=== PATIENT | female | born 1950 | race Two or more races ===

== ENCOUNTER 2018-03-09 18:57 | Inpatient (IN) | payer MEDICARE ==
[~2018-03-09] VITALS: Ht 160 cm; Wt 54.0 kg
--- NOTE | 2018-03-09 19:25 | NUR ---
REPORT RECEIVED FROM KATERIN BETTS
[2018-03-09 20:26] LABS: ACETAMINOPHEN < 2.0 ug/mL (10-30)
[2018-03-09 20:35] LABS: ETHANOL < 3 MG/DL (0-0)
--- NOTE | 2018-03-09 20:55 | NUR ---
REPORT GIVEN TO MHU NURSE, ROXANE CRUZ
--- NOTE | 2018-03-09 21:24 | NUR ---
PT IN BED. PT IS CALM AND COOPERATIVE. PT HAS ONE TO ONE SITTER. NO SIGNS OF ACUTE DISTRESS AT THIS TIME.
--- NOTE | 2018-03-09 21:30 | NUR ---
Pt. admitted to [facility]HU, under care of Dr. CARROLL/AISHA Belongs List completed
[2018-03-09] MEDS ORDERED: AMLO5TAB2 PO (22:10)
[2018-03-09] MEDS ORDERED: GABA-532 PO (22:10)
[2018-03-09] MEDS ORDERED: BUPR-96 PO (22:10)
[2018-03-09] MEDS ORDERED: GLIP5TAB13 PO (22:10)
[2018-03-09] MEDS ORDERED: LIDOCAINE 4% TD (22:10)
[2018-03-09 22:13] LABS: *BILIRUBIN,URIN NEGATIVE (NEGATIVE); *BLOOD, URINE Trace-lysed (NEGATIVE); *CLARITY,URINE SLIGHTLY CLOUDY (CLEAR); *COLOR,URINE YELLOW (YELLOW); *KETONES,URINE NEGATIVE (NEGATIVE); *PROTEIN,URINE 2+ (NEGATIVE); *UROBILINOGEN,URINE 0.2 E.U./dl (NORMAL); LEUKOCYTE ESTERASE ,URINE 3+ (NEGATIVE); NITRITE, URINE NEGATIVE (NEGATIVE); UGLUCOSE TRACE (NEGATIVE)
[2018-03-09 22:15] VITALS: BP 120/68
[2018-03-09 22:33] LABS: *AMPHETAMINE, URINE NEGATIVE (NEGATIVE); *BARBITURATE, URINE NEGATIVE (NEGATIVE); *CANNABINOID, URINE NEGATIVE (NEGATIVE); *COCCAINE, URINE NEGATIVE (NEGATIVE); *OPIATE, URINE POSITIVE (NEGATIVE); *PHENCYCLIDINE SCREEN,URINE NEGATIVE (NEGATIVE)
[2018-03-09 22:40] LABS: BACTERIA,URINE FEW /HPF (NONE SEEN); SQUAMOUS EPITHELIAL CELL,UR FEW /HPF (NONE SEEN); WBC,URINE 50-80 /HPF (0-3)
[2018-03-09] MEDS ORDERED: MAGNESIUM HYDROXIDE 30 ML LIQUID UDC PO PRN (22:45)
[2018-03-09] MEDS: ACETAMINOPHEN 325 MG TABLET PO PRN (22:49)
[2018-03-09] MEDS: ZOLPIDEM 5 MG TABLET PO PRN (22:49)
--- NOTE | 2018-03-09 23:53 | NUR ---
GPS: Admitted to unit earlier a 67 yr.old female under the care of / in stable condition. Pt.is on a 72 hour hold for DTS. Pt.has been depressed,feels hopeless since loss of job about 2 yrs.ago. Pt. has multiple thoughts of cutting wrists with a knife. Pt. contracts for safety at this time. Re-assured prn. Sitter at bedside for safety. VSS.
[2018-03-10 07:30] VITALS: BP 160/82
--- NOTE | 2018-03-10 08:46 | NUR ---
CALL FOR CONSULT PER DR. LEONARD'S REQUESTED.
[2018-03-10] MEDS ORDERED: glipiZIDE 5 MG TABLET PO SCH (09:00)
[2018-03-10] MEDS ORDERED: GABAPENTIN 100 MG CAPSULE PO SCH ×2 (09:00)
[2018-03-10] MEDS: AMLODIPINE 5 MG TABLET PO SCH (09:39)
[2018-03-10] MEDS: buPROPion XL 150 MG TAB.SR.24H PO SCH (09:39)
[2018-03-10] MEDS: HALOPERIDOL 0.5 MG TABLET PO SCH ×2 (09:39→16:34)
[2018-03-10] MEDS: GABAPENTIN 100 MG CAPSULE PO SCH ×3 (09:40→16:34)
--- NOTE | 2018-03-10 10:29 | NUR ---
Firearms Report: Utilization Management Rn completed and submitted [employer] Report on 03/10/18 for 5150 DTS certification.
[2018-03-10] MEDS ORDERED: DEXTROSE 50% 50 ML DISP.SYRIN IV PRN (11:00)
[2018-03-10] MEDS: BLOOD SUGAR DIAGNOSTIC 1 EACH STRIP VI SCH ×3 (12:21→20:35)
[2018-03-10] MEDS: CEPHALEXIN MONOHYDRATE 500 MG CAPSULE PO SCH ×2 (13:00→21:40)
[2018-03-10 15:09] VITALS: BP 128/58
--- NOTE | 2018-03-10 15:41 | NUR ---
Initial Discharge Instructions: Patient is currently living at home with her and 2 adult sons [[address], [place] [address]; [phone]]. Patient reports she would like to return home upon discharge. SW will speak with patient's sister, Poornima ([phone]) and son, Pankaj ([phone]). SHANNAN will continue to collaborate with pt, family, and MD regarding appropriate discharge plans for this patient. SW will form a safe and proper discharge plan.
[2018-03-10] MEDS: glipiZIDE 5 MG TABLET PO SCH (16:34)
[2018-03-10 20:00] VITALS: BP 143/82
[2018-03-10] MEDS: LORAZEPAM 0.5 MG TABLET PO PRN (20:01)
[2018-03-10] MEDS: ATORVASTATIN 40 MG TABLET PO SCH (20:01)
--- NOTE | 2018-03-10 20:05 | NUR ---
GPS: Pt.is confused,anxious and crying at this time. Pt. is strongly insisting that she is not in her room. Staff re-assured pt.through kyrgyz speaking staff that she is in the right room at this time.Pt.continues to insist that she is not in her room. Re-directed at this time. Ativan 0.5 mg given PO for anxiety. Will monitor behavior for further escalation.
--- NOTE | 2018-03-10 20:35 | NUR ---
GPS: Blood sugar checked at this time and was 146mg/dl. Refused 2 units of reg.insulin per sliding scale despite explanation of importance. Pt.still anxious,angry and continues to insist that she is not in her room at this time. Re-directed and re-assured frequently by staff. Fall precautions observed.
[2018-03-10] MEDS: INSULIN REGULAR, HUMAN 300 UNITS/3 ML VIAL SQ PRN (20:39)
--- NOTE | 2018-03-10 21:40 | NUR ---
GPS: Refused Keflex 500mg PO at this time for her UTI despite explanation of importance. Pt.still confused,insisting that she is not in her room at this time. Re-directed frequently.
[2018-03-11] MEDS: CEPHALEXIN MONOHYDRATE 500 MG CAPSULE PO SCH ×3 (06:19→21:23)
[2018-03-11] MEDS: BLOOD SUGAR DIAGNOSTIC 1 EACH STRIP VI SCH ×7 (06:32→20:26)
[2018-03-11 07:30] VITALS: BP 134/77
[2018-03-11] MEDS: buPROPion XL 150 MG TAB.SR.24H PO SCH (08:23)
[2018-03-11] MEDS: AMLODIPINE 5 MG TABLET PO SCH (08:24)
[2018-03-11] MEDS: HALOPERIDOL 0.5 MG TABLET PO SCH ×2 (08:24→16:55)
[2018-03-11] MEDS: GABAPENTIN 100 MG CAPSULE PO SCH ×3 (08:24→16:55)
[2018-03-11] MEDS: glipiZIDE 5 MG TABLET PO SCH ×2 (08:24→16:30)
[2018-03-11 09:05] LABS: BASOPHILS # (AUTO) 0.3 K/uL (0.0-8.0); BASOPHILS % (AUTO) 2.3 % (0.0-2.0); EOSINOPHILS # (AUTO) 0.4 K/uL (0.0-0.7); EOSINOPHILS % (AUTO) 3.2 % (0.0-7.0); HEMATOCRIT 33.3 % (31.2-41.9); HEMOGLOBIN 11.1 g/dL (10.9-14.3); LYMPHOCYTES # (AUTO) 2.8 K/uL (20.0-40.0); LYMPHOCYTES % (AUTO) 24.9 % (20.5-51.5); MEAN CORPUSCULAR HEMOGLOBIN 27.2 uug (24.7-32.8); MEAN CORPUSCULAR HGB CONC 33 g/dL (32.3-35.6); MEAN CORPUSCULAR VOLUME 81.9 fL (75.5-95.3); MONOCYTES # (AUTO) 0.9 K/uL (2.0-10.0); MONOCYTES % (AUTO) 7.9 % (0.0-11.0); NEUTROPHILS % (AUTO) 61.7 % (38.5-71.5); PLATELET COUNT (AUTO) 542 K/uL (179-408); RED BLOOD CELL COUNT(AUTO) 4.07 MIL/uL (3.63-4.92); WHITE BLOOD COUNT (AUTO) 11.3 K/uL (3.8-11.8)
[2018-03-11 09:22] LABS: BILIRUBIN,TOTAL 0.4 mg/dL (0.2-1.0); CREATININE 3.4 mg/dL (0.6-1.3); MAGNESIUM 2.3 mg/dL (1.8-2.4); PHOSPHOROUS 5.3 mg/dL (2.5-4.9); POTASSIUM 4.1 mmol/L (3.5-5.1); TOTAL PROTEIN, SERUM 9.4 g/dL (6.4-8.2)
[2018-03-11 09:26] LABS: THYROID STIMULATING HORMONE 1.054 mIU/mL (0.358-3.740)
[2018-03-11] MEDS: INSULIN REGULAR, HUMAN 300 UNIT/3 ML VIAL SQ PRN (11:40)
[2018-03-11] MEDS: ACETAMINOPHEN 325 MG TABLET PO PRN (14:02)
[2018-03-11 15:28] LABS: *BILIRUBIN,URIN NEGATIVE (NEGATIVE); *BLOOD, URINE Trace-lysed (NEGATIVE); *COLOR,URINE LIGHT YELLOW (YELLOW); *KETONES,URINE NEGATIVE (NEGATIVE); *PROTEIN,URINE 2+ (NEGATIVE); *UROBILINOGEN,URINE 0.2 E.U./dl (NORMAL); LEUKOCYTE ESTERASE ,URINE 3+ (NEGATIVE); NITRITE, URINE NEGATIVE (NEGATIVE); PH,URINE 6.5 (5.0-8.0); UGLUCOSE TRACE (NEGATIVE)
[2018-03-11 15:35] LABS: *CREATININE,URINE 33.5 mg/dL (30-125); *URINE TOTAL PROTEIN RANDOM 69.3 mg/dL (<150/24HR)
[2018-03-11 15:51] LABS: *CLARITY,URINE HAZY (CLEAR)
[2018-03-11 15:57] LABS: BACTERIA,URINE FEW /HPF (NONE SEEN); SQUAMOUS EPITHELIAL CELL,UR FEW /HPF (NONE SEEN); WBC,URINE 50-80 /HPF (0-3)
[2018-03-11 16:00] VITALS: BP 150/77
--- NOTE | 2018-03-11 16:29 | NUR ---
BLOOD SUGAR BY ACCU-CHEK 54 BUT ASYMPTOMATIC, WARM AND DRY SKIN, AWAKE ALERT AND ABLE TO FOLLOW INSTRUCTION. WILL RE-CHECK PER PROTOCOL
--- NOTE | 2018-03-11 16:45 | NUR ---
blood sugar recheck 72, glucotrol held. patient remains asymptomatic
[2018-03-11] MEDS: ATORVASTATIN 40 MG TABLET PO SCH (20:07)
[2018-03-11 20:19] VITALS: BP 153/78
[2018-03-11] MEDS: INSULIN REGULAR, HUMAN 300 UNITS/3 ML VIAL SQ PRN (20:42)
--- NOTE | 2018-03-12 05:30 | NUR ---
GPS: Pt. refusing to have a straight cath.done on her (to collect urine) despite explanation of doctors orders. Pt. is continent and is assisted to the bathroom prn. Charge nurse aware.
[2018-03-12] MEDS: BLOOD SUGAR DIAGNOSTIC 1 EACH STRIP VI SCH ×4 (06:37→20:10)
[2018-03-12] MEDS: CEPHALEXIN MONOHYDRATE 500 MG CAPSULE PO SCH ×3 (06:37→22:19)
[2018-03-12 07:30] VITALS: BP 121/78
[2018-03-12 08:41] LABS: BASOPHILS # (AUTO) 0.2 K/uL (0.0-8.0); BASOPHILS % (AUTO) 1.4 % (0.0-2.0); EOSINOPHILS # (AUTO) 0.4 K/uL (0.0-0.7); EOSINOPHILS % (AUTO) 3.3 % (0.0-7.0); HEMATOCRIT 34.1 % (31.2-41.9); HEMOGLOBIN 11.3 g/dL (10.9-14.3); LYMPHOCYTES # (AUTO) 2.9 K/uL (20.0-40.0); LYMPHOCYTES % (AUTO) 24.4 % (20.5-51.5); MEAN CORPUSCULAR HEMOGLOBIN 27.4 uug (24.7-32.8); MEAN CORPUSCULAR HGB CONC 33 g/dL (32.3-35.6); MEAN CORPUSCULAR VOLUME 82.8 fL (75.5-95.3); MONOCYTES % (AUTO) 8.6 % (0.0-11.0); NEUTROPHILS # (AUTO) 7.5 K/uL (1.8-8.9); NEUTROPHILS % (AUTO) 62.3 % (38.5-71.5); PLATELET COUNT (AUTO) 552 K/uL (179-408); RED BLOOD CELL COUNT(AUTO) 4.12 MIL/uL (3.63-4.92)
[2018-03-12] MEDS: glipiZIDE 5 MG TABLET PO SCH ×2 (08:43→17:35)
[2018-03-12] MEDS: buPROPion XL 150 MG TAB.SR.24H PO SCH (08:44)
[2018-03-12] MEDS: GABAPENTIN 100 MG CAPSULE PO SCH ×3 (08:44→17:35)
[2018-03-12] MEDS: HALOPERIDOL 0.5 MG TABLET PO SCH ×3 (08:44→17:35)
[2018-03-12] MEDS: AMLODIPINE 5 MG TABLET PO SCH (08:44)
[2018-03-12 08:58] LABS: BILIRUBIN,TOTAL 0.4 mg/dL (0.2-1.0); CREATININE 3.7 mg/dL (0.6-1.3); MAGNESIUM 2.6 mg/dL (1.8-2.4); PHOSPHOROUS 4.7 mg/dL (2.5-4.9); POTASSIUM 4.4 mmol/L (3.5-5.1); TOTAL PROTEIN, SERUM 9.9 g/dL (6.4-8.2)
[2018-03-12] MEDS: INSULIN REGULAR, HUMAN 300 UNIT/3 ML VIAL SQ PRN ×2 (09:00→12:35)
[2018-03-12 16:00] VITALS: BP 135/69
[2018-03-12] MEDS: ACETAMINOPHEN 325 MG TABLET PO PRN (16:59)
[2018-03-12] MEDS: INSULIN REGULAR, HUMAN 300 UNITS/3 ML VIAL SQ PRN (20:27)
[2018-03-12] MEDS: ATORVASTATIN 40 MG TABLET PO SCH (20:30)
[2018-03-12 21:07] VITALS: BP 154/85
[2018-03-13 03:06] LABS: VIT D, 25-HYDROXY 18.7 ng/mL (30.0-100.0)
[2018-03-13] MEDS: CEPHALEXIN MONOHYDRATE 500 MG CAPSULE PO SCH (05:58)
--- NOTE | 2018-03-13 06:21 | NUR ---
GPS: REMAIN CALM AND COOPERATIVE WITH MEDICATIONS. PLESANT UPON APPROACH. SLEPT 7:30 HRS THROUGH THE NIGHT. CONTINUE PLAN OF CARE.
[2018-03-13] MEDS: BLOOD SUGAR DIAGNOSTIC 1 EACH STRIP VI SCH ×4 (06:34→21:27)
[2018-03-13 07:30] VITALS: BP 131/77
[2018-03-13] MEDS: glipiZIDE 5 MG TABLET PO SCH ×2 (08:02→17:22)
[2018-03-13] MEDS: INSULIN REGULAR, HUMAN 300 UNIT/3 ML VIAL SQ PRN ×2 (08:05→12:28)
[2018-03-13 08:07] LABS: A/G RATIO 0.6 (0.7-1.7); ALBUMIN 3.3 g/dL (2.9-4.4); ALPHA-1-GLOBULIN 0.3 g/dL (0.0-0.4); ALPHA-2-GLOBULIN 1.5 g/dL (0.4-1.0); BETA GLOBULIN 1.4 g/dL (0.7-1.3); GAMMA GLOBULIN 2.8 g/dL (0.4-1.8); M-SPIKE Not Observed g/dL (Not Observed)
[2018-03-13] MEDS: GABAPENTIN 100 MG CAPSULE PO SCH ×3 (08:52→17:22)
[2018-03-13] MEDS: HALOPERIDOL 0.5 MG TABLET PO SCH ×4 (08:52→21:26)
[2018-03-13] MEDS: buPROPion XL 150 MG TAB.SR.24H PO SCH (08:53)
[2018-03-13] MEDS: AMLODIPINE 5 MG TABLET PO SCH (08:53)
[2018-03-13] MEDS: CHOLECALCIFEROL 1,000 UNIT TABLET PO SCH (12:25)
--- NOTE | 2018-03-13 13:48 | NUR ---
Spoke to RN, RN concerns of pt p/o intake not meeting 100%. Pt on CCHO-75gm diet, p/o intake 72% x10 meals. Pt is mild moderate fat & muscle loss, BMI 21.1-underweight for age. Will add Glucerna QD at breakfast. RD to follow. Addendum: 03/13/18 at [address] Amended: Links added.
[2018-03-13] MEDS: ACETAMINOPHEN 325 MG TABLET PO PRN (14:01)
[2018-03-13 15:42] VITALS: BP 131/79
[2018-03-13] MEDS: ATORVASTATIN 40 MG TABLET PO SCH (21:26)
[2018-03-13] MEDS: INSULIN REGULAR, HUMAN 300 UNITS/3 ML VIAL SQ PRN (21:27)
[2018-03-13 21:36] VITALS: BP 131/77
--- NOTE | 2018-03-14 01:00 | NUR ---
RECEIVED PATIENT AWAKE WITH EYES SHUT AND INITIALLY NOT MAKING EYE CONTACT.OPENED THEM LATER AND ANSWERED SOME QUESTIONS SELECTIVELY.ADMITTED TO BEING SAD BUT COULD NOT SAY WHY.ON I.V HYDRATION ON N/S 80CC/HR.SAME INFUSING, LINE PATENT WITH NO ADVERSE REACTION.SHE LATER REQUESTED A SLEEPING PILL AND AFTER ASSESSMENT SAME GIVEN AT 2300 WITH GOOD EFFECT.WILL CONTINUE TO MONITOR CLOSELY ALSO HAS 1;1 SITTER FOR SAFETY. NO COMPLIANT OF PAIN OR DISCOMFORT AT THIS TIME
[2018-03-14] MEDS: BLOOD SUGAR DIAGNOSTIC 1 EACH STRIP VI SCH ×4 (06:48→23:35)
--- NOTE | 2018-03-14 07:03 | NUR ---
PT HAD 7.0 HRS DURING SHIFT. BG DONE, 118 IN AM. SAFETY MEASURES RENDERED.
[2018-03-14 07:30] VITALS: BP_SYST 119; BP_SYST 141; BP_DIAS 78
[2018-03-14 07:37] LABS: BASOPHILS # (AUTO) 0.2 K/uL (0.0-8.0); BASOPHILS % (AUTO) 1.7 % (0.0-2.0); EOSINOPHILS # (AUTO) 0.6 K/uL (0.0-0.7); EOSINOPHILS % (AUTO) 5.7 % (0.0-7.0); HEMATOCRIT 32.2 % (31.2-41.9); HEMOGLOBIN 10.5 g/dL (10.9-14.3); LYMPHOCYTES # (AUTO) 3.9 K/uL (20.0-40.0); LYMPHOCYTES % (AUTO) 37.9 % (20.5-51.5); MEAN CORPUSCULAR HEMOGLOBIN 26.8 uug (24.7-32.8); MEAN CORPUSCULAR HGB CONC 33 g/dL (32.3-35.6); MEAN CORPUSCULAR VOLUME 82.3 fL (75.5-95.3); MONOCYTES # (AUTO) 0.8 K/uL (2.0-10.0); MONOCYTES % (AUTO) 8.3 % (0.0-11.0); NEUTROPHILS # (AUTO) 4.7 K/uL (1.8-8.9); NEUTROPHILS % (AUTO) 46.4 % (38.5-71.5); PLATELET COUNT (AUTO) 499 K/uL (179-408); RED BLOOD CELL COUNT(AUTO) 3.91 MIL/uL (3.63-4.92); WHITE BLOOD COUNT (AUTO) 10.2 K/uL (3.8-11.8)
[2018-03-14 08:02] LABS: CREATININE 3.7 mg/dL (0.6-1.3); MAGNESIUM 2.2 mg/dL (1.8-2.4); PHOSPHOROUS 4.7 mg/dL (2.5-4.9); POTASSIUM 3.9 mmol/L (3.5-5.1)
[2018-03-14] MEDS: glipiZIDE 5 MG TABLET PO SCH ×2 (08:30→18:03)
[2018-03-14] MEDS: HALOPERIDOL 0.5 MG TABLET PO SCH ×4 (09:42→20:50)
[2018-03-14] MEDS: GABAPENTIN 100 MG CAPSULE PO SCH ×3 (09:43→18:04)
[2018-03-14] MEDS: CHOLECALCIFEROL 1,000 UNIT TABLET PO SCH (09:43)
[2018-03-14] MEDS: AMLODIPINE 5 MG TABLET PO SCH (09:43)
[2018-03-14] MEDS: buPROPion XL 150 MG TAB.SR.24H PO SCH (09:45)
[2018-03-14] MEDS ORDERED: IV NS 1000 ML 1,000 ML IV ONE (11:30)
[2018-03-14] MEDS: ACETAMINOPHEN 325 MG TABLET PO PRN (12:46)
[2018-03-14] MEDS: INSULIN REGULAR, HUMAN 300 UNIT/3 ML VIAL SQ PRN ×2 (12:50→18:05)
[2018-03-14 15:36] VITALS: BP 121/82
[2018-03-14 20:00] VITALS: BP 130/77
[2018-03-14] MEDS: LORAZEPAM 0.5 MG TABLET PO PRN (20:50)
[2018-03-14] MEDS: ATORVASTATIN 40 MG TABLET PO SCH (20:50)
[2018-03-14] MEDS: INSULIN REGULAR, HUMAN 300 UNITS/3 ML VIAL SQ PRN (20:56)
[2018-03-14] MEDS: ZOLPIDEM 5 MG TABLET PO PRN (23:19)
[2018-03-15 07:30] VITALS: BP 140/71
[2018-03-15] MEDS: BLOOD SUGAR DIAGNOSTIC 1 EACH STRIP VI SCH ×4 (07:42→20:52)
[2018-03-15 07:44] LABS: CREATININE 3.8 mg/dL (0.6-1.3)
--- NOTE | 2018-03-15 07:52 | NUR ---
SLEPT FOR APPROX.6;30HR AFTER REQUESTING FOR A SLEEPING PILL.IV COMPLETED WITH NO ADVERSE REACTION.
[2018-03-15] MEDS: buPROPion XL 150 MG TAB.SR.24H PO SCH (08:36)
[2018-03-15] MEDS: CHOLECALCIFEROL 1,000 UNIT TABLET PO SCH (08:36)
[2018-03-15] MEDS: AMLODIPINE 5 MG TABLET PO SCH (08:36)
[2018-03-15] MEDS: glipiZIDE 5 MG TABLET PO SCH ×2 (08:36→16:50)
[2018-03-15] MEDS: HALOPERIDOL 0.5 MG TABLET PO SCH ×4 (08:36→20:52)
[2018-03-15] MEDS: GABAPENTIN 100 MG CAPSULE PO SCH ×3 (08:36→16:50)
[2018-03-15] MEDS: INSULIN REGULAR, HUMAN 300 UNIT/3 ML VIAL SQ PRN ×2 (12:18→17:07)
[2018-03-15 12:21] LABS: BASOPHILS # (AUTO) 0.1 K/uL (0.0-8.0); EOSINOPHILS # (AUTO) 0.5 K/uL (0.0-0.7); EOSINOPHILS % (AUTO) 3.6 % (0.0-7.0); HEMATOCRIT 31.1 % (31.2-41.9); HEMOGLOBIN 9.8 g/dL (10.9-14.3); LYMPHOCYTES # (AUTO) 2.5 K/uL (20.0-40.0); LYMPHOCYTES % (AUTO) 17.8 % (20.5-51.5); MEAN CORPUSCULAR HEMOGLOBIN 26.6 uug (24.7-32.8); MEAN CORPUSCULAR HGB CONC 32 g/dL (32.3-35.6); MEAN CORPUSCULAR VOLUME 84.3 fL (75.5-95.3); MONOCYTES # (AUTO) 1.2 K/uL (2.0-10.0); MONOCYTES % (AUTO) 8.3 % (0.0-11.0); NEUTROPHILS # (AUTO) 9.8 K/uL (1.8-8.9); NEUTROPHILS % (AUTO) 69.3 % (38.5-71.5); PLATELET COUNT (AUTO) 467 K/uL (179-408); RED BLOOD CELL COUNT(AUTO) 3.68 MIL/uL (3.63-4.92); WHITE BLOOD COUNT (AUTO) 14.1 K/uL (3.8-11.8)
[2018-03-15 12:31] LABS: MAGNESIUM 2.2 mg/dL (1.8-2.4); PHOSPHOROUS 4.6 mg/dL (2.5-4.9)
[2018-03-15 12:50] LABS: BILIRUBIN,DIRECT 0.1 mg/dL (0.0-0.2); BILIRUBIN,TOTAL 0.3 mg/dL (0.2-1.0); TOTAL PROTEIN, SERUM 8.7 g/dL (6.4-8.2)
--- NOTE | 2018-03-15 14:02 | NUR ---
Patient noted sitting up in Bella chair, no complaints of pain,no signs of distress noted, took all AM and evening medications, all needs met at this time
[2018-03-15 15:44] VITALS: BP 126/69
[2018-03-15] MEDS: ACETAMINOPHEN 325 MG TABLET PO PRN ×2 (16:50→23:58)
--- NOTE | 2018-03-15 18:45 | NUR ---
Patient took all medications today, tylenol 650 given for mild knee pain, no thoughts of suicide voiced this shift to myself or staff
[2018-03-15] MEDS: ATORVASTATIN 40 MG TABLET PO SCH (20:52)
[2018-03-15 20:58] VITALS: BP 149/82
[2018-03-15] MEDS: LORAZEPAM 0.5 MG TABLET PO PRN (23:58)
[2018-03-16] MEDS: BLOOD SUGAR DIAGNOSTIC 1 EACH STRIP VI SCH ×4 (06:58→20:43)
[2018-03-16] MEDS: glipiZIDE 5 MG TABLET PO SCH ×2 (06:59→16:54)
[2018-03-16 07:30] VITALS: BP 121/76
[2018-03-16] MEDS: GABAPENTIN 100 MG CAPSULE PO SCH ×3 (09:33→16:54)
[2018-03-16] MEDS: ARIPIPRAZOLE 5 MG TABLET PO SCH (09:33)
[2018-03-16] MEDS: buPROPion XL 150 MG TAB.SR.24H PO SCH (09:33)
[2018-03-16] MEDS: CHOLECALCIFEROL 1,000 UNIT TABLET PO SCH (09:33)
[2018-03-16] MEDS: ACETAMINOPHEN 325 MG TABLET PO PRN ×2 (09:38→16:54)
[2018-03-16 10:59] VITALS: BP 142/76
[2018-03-16] MEDS: AMLODIPINE 5 MG TABLET PO SCH (10:59)
[2018-03-16] MEDS: INSULIN REGULAR, HUMAN 300 UNIT/3 ML VIAL SQ PRN ×2 (12:34→17:55)
[2018-03-16 13:00] VITALS: BP 132/72
[2018-03-16 15:31] LABS: CREATININE 3.6 mg/dL (0.6-1.3)
[2018-03-16 17:51] LABS: *BILIRUBIN,URIN NEGATIVE (NEGATIVE); *BLOOD, URINE 1+ (NEGATIVE); *CLARITY,URINE CLOUDY (CLEAR); *COLOR,URINE LIGHT YELLOW (YELLOW); *KETONES,URINE NEGATIVE (NEGATIVE); *PROTEIN,URINE 2+ (NEGATIVE); *UROBILINOGEN,URINE 0.2 E.U./dl (NORMAL); LEUKOCYTE ESTERASE ,URINE 3+ (NEGATIVE); NITRITE, URINE NEGATIVE (NEGATIVE); UGLUCOSE TRACE (NEGATIVE)
[2018-03-16 18:11] LABS: BACTERIA,URINE MANY /HPF (NONE SEEN); WBC,URINE 20-50 /HPF (0-3)
[2018-03-16 18:12] LABS: SQUAMOUS EPITHELIAL CELL,UR FEW /HPF (NONE SEEN)
--- NOTE | 2018-03-16 18:35 | NUR ---
PT ARRIVED ON THE UNIT VIA WHEEL CHAIR, CALM, COOPERATIVE, FAMILY AT THE BEDSIDE. NO SIGNS OF RESPIRATORY DISTRESS, AOX3 BUT FORGETFUL, PT DENIES SI AT THIS TIME AND CONTRACTS FOR SAFETY INSIDE AND OUTSIDE OF THE HOSPITAL. CONTINUE TO MONITOR PT.
[2018-03-16 18:43] VITALS: BP 150/80
[2018-03-16] MEDS: ATORVASTATIN 40 MG TABLET PO SCH (20:43)
[2018-03-16 20:47] VITALS: BP 138/72
[2018-03-17] MEDS: glipiZIDE 5 MG TABLET PO SCH ×2 (06:47→17:00)
[2018-03-17] MEDS: BLOOD SUGAR DIAGNOSTIC 1 EACH STRIP VI SCH ×4 (06:48→20:13)
--- NOTE | 2018-03-17 06:55 | NUR ---
Family visited with patient last night. Patient slept 6 hours. No episode of crying, no verbalization of suicidal ideation.
[2018-03-17] MEDS: ARIPIPRAZOLE 5 MG TABLET PO SCH (08:27)
[2018-03-17] MEDS: ACETAMINOPHEN 325 MG TABLET PO PRN ×2 (08:28→22:49)
[2018-03-17] MEDS: buPROPion XL 150 MG TAB.SR.24H PO SCH (08:28)
[2018-03-17] MEDS: GABAPENTIN 100 MG CAPSULE PO SCH ×3 (08:28→17:00)
[2018-03-17] MEDS: AMLODIPINE 5 MG TABLET PO SCH (08:28)
[2018-03-17] MEDS: CHOLECALCIFEROL 1,000 UNIT TABLET PO SCH (08:28)
--- NOTE | 2018-03-17 08:30 | NUR ---
AWAKE COOPERATE WELL EAT BREAKFAST MOD AMT ON FALL PRECAUTION SITTER1:1 AT BEDSIDE FOR SAFETY ,REMAIN DEPRESSION /ANXIETY BUT NO S/I AT THIS TIME DR LEONARD SEEN PATIENT THIS AM
[2018-03-17 09:00] VITALS: BP 145/78
[2018-03-17 09:07] LABS: CALCITRIOL VIT D,1,25 DIHYDROX 6.7 pg/mL (19.9-79.3)
[2018-03-17] MEDS: INSULIN REGULAR, HUMAN 300 UNIT/3 ML VIAL SQ PRN (12:24)
[2018-03-17 15:00] VITALS: BP 142/72
[2018-03-17] MEDS: MAG HYDROX/AL HYDROX/SIMETH 30 ML LIQUID UDC PO PRN ×2 (15:45→15:51)
[2018-03-17] MEDS: LORAZEPAM 0.5 MG TABLET PO PRN (15:51)
--- NOTE | 2018-03-17 16:00 | NUR ---
PATIENT HAVING NAUSEA AND VOMITTING INDIGESTIVE FOOD MOD AMT MED PRN FOR STOMACH UPSET GIVEN ORDER ,STATE HAVE SMALL BM TODAY
--- NOTE | 2018-03-17 18:00 | NUR ---
MOST OF THE TIME RESTING QUIET IN BED AND COOPERATE NO S/I ,REMAINE ANXIETY MEDICATION ATIVAN PRN GIVEN ORDER SAFETY MEASURE PROVIDED SITTER 1:1 AT BEDSIDE AND CALL LIGHT IN REACH
[2018-03-17] MEDS ORDERED: ONDANSETRON ODT 4 MG TAB.RAPDIS SL PRN (18:45)
[2018-03-17 19:00] VITALS: BP 147/72
--- NOTE | 2018-03-17 19:30 | NUR ---
Received patient from day shift nurse. Patient stable at start of shift with no acute distress noted. Patient is A/Ox2-3, Serbian-speaking able to make some needs known. 1:1 sitter at the bedside. Family at bedside. Pertinent assessment completed. Patient denies SI. Denies pain & SOB. Denies feelings of nausea. Vital signs within range at start of shift. Room checked for safety. Bed in low position & locked. Will continue to monitor through shift.
[2018-03-17] MEDS: ATORVASTATIN 40 MG TABLET PO SCH (20:13)
[2018-03-17] MEDS: INSULIN REGULAR, HUMAN 300 UNITS/3 ML VIAL SQ PRN (20:14)
[2018-03-17] MEDS ORDERED: CEPHALEXIN MONOHYDRATE 500 MG CAPSULE PO SCH (22:00)
[2018-03-17] MEDS ORDERED: CEPHALEXIN MONOHYDRATE 500 MG CAPSULE ONE (22:42)
[2018-03-17] MEDS ORDERED: CEPHALEXIN MONOHYDRATE 500 MG CAPSULE PO ONE (23:00)
[2018-03-18] VITALS (8 sets, daily range): BP systolic 67–153; BP diastolic 36–81
[2018-03-18] MEDS: CEPHALEXIN MONOHYDRATE 500 MG CAPSULE PO SCH ×3 (06:04→21:19)
--- NOTE | 2018-03-18 06:10 | NUR ---
Patient cooperative with care. No acute distress through shift. Sitter at the bedside for safety. No S.I. or plan stated by patient during the shift. Patient slept a total of 7 hours through the night. Vital signs stable through shift. On ATB Keflex for infection per MD order. All needs attended to promptly. All medications administered per MD order. No s/s of hypo/hyperglycemia noted. Safety measures implemented. Will endorse accordingly.
[2018-03-18] MEDS: BLOOD SUGAR DIAGNOSTIC 1 EACH STRIP VI SCH ×4 (06:36→21:21)
--- NOTE | 2018-03-18 08:00 | NUR ---
AWAKE ORTX2 COOPERATE WELL NO SOB OR PAIN EAT BREAKFAST WELL DENIED S/I PLAN OR THOUGHT BUT STATE SEE SOMETHING IN THE ROOM /HALLUCINATION SITTER 1;1 AT BEDSIDE FOR SAFETY ,RESTING WELL WITH CALL LAY IN REACH
[2018-03-18] MEDS: buPROPion XL 150 MG TAB.SR.24H PO SCH (08:29)
[2018-03-18] MEDS: GABAPENTIN 100 MG CAPSULE PO SCH ×3 (08:29→17:38)
[2018-03-18] MEDS: ACETAMINOPHEN 325 MG TABLET PO PRN ×2 (08:29→14:05)
[2018-03-18] MEDS: glipiZIDE 5 MG TABLET PO SCH ×2 (08:29→18:44)
[2018-03-18] MEDS: ARIPIPRAZOLE 5 MG TABLET PO SCH (08:29)
[2018-03-18] MEDS: CHOLECALCIFEROL 1,000 UNIT TABLET PO SCH (08:29)
[2018-03-18] MEDS: AMLODIPINE 5 MG TABLET PO SCH (08:30)
[2018-03-18 09:33] LABS: BASOPHILS # (AUTO) 0.1 K/uL (0.0-8.0); BASOPHILS % (AUTO) 0.7 % (0.0-2.0); EOSINOPHILS # (AUTO) 0.3 K/uL (0.0-0.7); EOSINOPHILS % (AUTO) 2.6 % (0.0-7.0); HEMATOCRIT 32.6 % (31.2-41.9); HEMOGLOBIN 10.4 g/dL (10.9-14.3); LYMPHOCYTES # (AUTO) 2.5 K/uL (20.0-40.0); LYMPHOCYTES % (AUTO) 19.4 % (20.5-51.5); MEAN CORPUSCULAR HEMOGLOBIN 26.5 uug (24.7-32.8); MEAN CORPUSCULAR HGB CONC 32 g/dL (32.3-35.6); MEAN CORPUSCULAR VOLUME 83.2 fL (75.5-95.3); MONOCYTES % (AUTO) 8.3 % (0.0-11.0); NEUTROPHILS # (AUTO) 8.8 K/uL (1.8-8.9); PLATELET COUNT (AUTO) 464 K/uL (179-408); RED BLOOD CELL COUNT(AUTO) 3.92 MIL/uL (3.63-4.92); WHITE BLOOD COUNT (AUTO) 12.7 K/uL (3.8-11.8)
[2018-03-18 09:48] LABS: CREATININE 3.5 mg/dL (0.6-1.3); MAGNESIUM 2.5 mg/dL (1.8-2.4); PHOSPHOROUS 4.5 mg/dL (2.5-4.9)
--- NOTE | 2018-03-18 10:00 | NUR ---
OOB AMB WITH PT DOING WELL AND UP IN CHAIR THIS AM
[2018-03-18] MEDS: LORAZEPAM 0.5 MG TABLET PO PRN (10:45)
[2018-03-18] MEDS: INSULIN REGULAR, HUMAN 300 UNIT/3 ML VIAL SQ PRN (12:10)
--- NOTE | 2018-03-18 15:45 | NUR ---
PATIENT HAVING EPISODE OF N/V 100ML INDIGESTIVE FOOD ZOFRAN PO PRN GIVEN ORDER,FAMILY AT BEDSIDE AT THIS TIME
[2018-03-18] MEDS: MAG HYDROX/AL HYDROX/SIMETH 30 ML LIQUID UDC PO PRN (15:57)
--- NOTE | 2018-03-18 16:30 | NUR ---
UP IN CHAIR FAMILY AT BEDSIDE NAUSEA SUBSIDE CLOSED OBSERVATION
--- NOTE | 2018-03-18 16:55 | NUR ---
VS TAKEN BP WAS VERY LOW IT WAS 67/36 HR 80 RESP 18 O2 SAT 95% RA ASSIST BACK TO BED AND PUT ON TRENDELENBERG POSITION RECHECK BP AGAIN IT WAS 106/76 HR 84 O2 SAT 96% RA AND MERVIN Hernandez WAS INFORM OF PATIENT SITUATION IV NS BOLUS 500ML GIVEN AND CHECK BS WAS 154 , RAPID RESPONSE WAS CALL PER PROTOCOL ,CLOSED OBSERVATION SEE FLOW SHEET VS
--- NOTE | 2018-03-18 17:10 | NUR ---
PATIENT WAS AWAKE ABLE TO ANSWER QUESTION VS MONITORING IMPROVING AND STABLE
[2018-03-18] MEDS ORDERED: IV NORMAL SALINE 500 ML IV ONE (17:15)
--- NOTE | 2018-03-18 18:00 | NUR ---
EAT DINNER SMALL AMT BUT NO N/V AT THIS TIME CLOSED OBSERVATION CANCEL TO MOVE TO [facility]
--- NOTE | 2018-03-18 18:30 | NUR ---
STABLE CONDITION AT THIS TIME SAFETY MEASURE PROVIDED SITTER 1;1 AT BEDSIDE AND CALL LIGHT IN REACH IV CONVERT TO HL
[2018-03-18] MEDS: ATORVASTATIN 40 MG TABLET PO SCH (21:19)
[2018-03-18] MEDS: INSULIN REGULAR, HUMAN 300 UNITS/3 ML VIAL SQ PRN (21:31)
[2018-03-19] MEDS: ZOLPIDEM 5 MG TABLET PO PRN (00:10)
[2018-03-19 04:00] VITALS: BP 142/80
[2018-03-19] MEDS: CEPHALEXIN MONOHYDRATE 500 MG CAPSULE PO SCH ×3 (06:03→21:45)
[2018-03-19] MEDS: BLOOD SUGAR DIAGNOSTIC 1 EACH STRIP VI SCH ×4 (06:50→20:30)
[2018-03-19] MEDS: glipiZIDE 5 MG TABLET PO SCH ×2 (06:50→17:35)
--- NOTE | 2018-03-19 07:02 | NUR ---
PT BLOOD SUGAR AT 94 AND BLOOD PRESSURRE 140/76 AT THIS TIME. NO S/S OF ACUTE DISTRESS. STABLE CONDITION. WILL TRANSFER TO MHU BED 141A
[2018-03-19 08:56] VITALS: BP 133/75
[2018-03-19] MEDS: buPROPion XL 150 MG TAB.SR.24H PO SCH (09:20)
[2018-03-19] MEDS: AMLODIPINE 5 MG TABLET PO SCH (09:21)
[2018-03-19] MEDS: CHOLECALCIFEROL 1,000 UNIT TABLET PO SCH (09:21)
[2018-03-19] MEDS: GABAPENTIN 100 MG CAPSULE PO SCH ×3 (09:21→17:35)
[2018-03-19] MEDS: ARIPIPRAZOLE 5 MG TABLET PO SCH (09:21)
[2018-03-19] MEDS: INSULIN REGULAR, HUMAN 300 UNIT/3 ML VIAL SQ PRN ×2 (12:45→20:39)
--- NOTE | 2018-03-19 15:34 | NUR ---
Gps/Leadite Worker- Patient leaving against medical Advice. Dr Cedeño was in earlier today, spoked to patient. Patient insistent she is going home today and she understood that she is leaving against Medical advice. All belongings was given back to patient. Patient appeared to be in good spirit. Discharged via uber , aware of the discharge. Addendum: 03/19/18 at 1543 by JON JEREZ LVN Error,charted on the wrong patient.
[2018-03-19 16:51] VITALS: BP 152/70
[2018-03-19] MEDS: INSULIN REGULAR, HUMAN 300 UNITS/3 ML VIAL SQ PRN (17:38)
--- NOTE | 2018-03-19 18:00 | NUR ---
Gps/Foot Doctor- Stayed up on her antwon-chair by the Nurses station for safety. Patient noted trying to get oob, dangling her feet over the rails, bed alarm was on. Compliant with her routine meds. needing min.prompting. Appeared to be hallucinating talking to someone not there, speaking in Palestinian , trying to reach something that is not there.
[2018-03-19 20:00] VITALS: BP 128/72
[2018-03-19] MEDS: ATORVASTATIN 40 MG TABLET PO SCH (20:30)
[2018-03-20] MEDS: CEPHALEXIN MONOHYDRATE 500 MG CAPSULE PO SCH ×2 (06:22→13:42)
[2018-03-20] MEDS: BLOOD SUGAR DIAGNOSTIC 1 EACH STRIP VI SCH ×4 (06:23→17:00)
[2018-03-20 07:30] VITALS: BP 133/65
[2018-03-20] MEDS: GABAPENTIN 100 MG CAPSULE PO SCH ×3 (08:22→17:00)
[2018-03-20] MEDS: ARIPIPRAZOLE 5 MG TABLET PO SCH (08:22)
[2018-03-20] MEDS: buPROPion XL 150 MG TAB.SR.24H PO SCH (08:22)
[2018-03-20] MEDS: CHOLECALCIFEROL 1,000 UNIT TABLET PO SCH (08:22)
[2018-03-20] MEDS: glipiZIDE 5 MG TABLET PO SCH ×2 (08:22→17:00)
[2018-03-20] MEDS: AMLODIPINE 5 MG TABLET PO SCH (08:23)
[2018-03-20] MEDS: INSULIN REGULAR, HUMAN 300 UNIT/3 ML VIAL SQ PRN (13:44)
[2018-03-20 15:28] VITALS: BP 114/63
--- NOTE | 2018-03-20 15:50 | NUR ---
Discharge Note: Patient will be discharged to [facility] [[address] [place] [address]; ] via ambulance. Spoke with Mckenna at the facility who report they are ready to accept the patient today. Spoke with pt's son, Pankaj López ([phone]) who is aware and agreeable with discharge plans. Patient is aware and agreeable with discharge plans. Patient will follow-up at the facility with Dr. Moore ([facility]) and Dr. Duarte (Psychiatrist)
--- NOTE | 2018-03-20 17:11 | NUR ---
Gps/Motor Express Clerk- Called [facility] to kerricathi report , spoked to Nurse Karla . Patient was informed and made aware of her dc. plan, daughter Poornima also aware of the dc.plan. All belongings gathered for patient .
--- NOTE | 2018-03-20 18:30 | NUR ---
Gps/Trim Sawyer- Ambulance in to application support developer patient , all belongings given back to patient, discharged in good spirit, no distress.
== END 2018-03-20 18:30 | DRG 885 ==
LOC: ER 19:03 → GPS 21:20 → MED 03-16 18:12 → GPSOV 03-16 18:29 → GPS 03-19 07:01
PROVIDERS: ADMIT Psychiatry & Neurology Psychiatry; ATTEND Nurse Practitioner Acute Care
DX: F33.3 Major depressive disorder, recurrent, severe with psychotic symptoms (principal); N18.9 Chronic kidney disease, unspecified; N17.0 Acute kidney failure with tubular necrosis; E11.65 Type 2 diabetes mellitus with hyperglycemia; N39.0 Urinary tract infection, site not specified; E87.1 Hypo-osmolality and hyponatremia; E44.0 Moderate protein-calorie malnutrition; S89.82XA Other specified injuries of left lower leg, initial encounter; M25.562 Pain in left knee; W18.30XA Fall on same level, unspecified, initial encounter; Y93.01 Activity, walking, marching and hiking; Y92.89 Other specified places as the place of occurrence of the external cause; E11.22 Type 2 diabetes mellitus with diabetic chronic kidney disease; I12.9 Hypertensive chronic kidney disease with stage 1 through stage 4 chronic kidney disease, or unspecified chronic kidney disease; Z79.84 Long term (current) use of oral hypoglycemic drugs; E87.6 Hypokalemia; E78.5 Hyperlipidemia, unspecified; Z86.73 Personal history of transient ischemic attack (TIA), and cerebral infarction without residual deficits; Z87.440 Personal history of urinary (tract) infections; Z79.899 Other long term (current) drug therapy; E86.1 Hypovolemia; E83.41 Hypermagnesemia; E55.9 Vitamin D deficiency, unspecified; Z68.21 Body mass index [BMI] 21.0-21.9, adult; D64.9 Anemia, unspecified
CPT/HCPCS: 36415; 71045; 76770; 80307; 80361; 82306; 82652; 83735; 83970; 84100; 84155; 84156; 84165; 84300; 84443; 85025; 87086; 93005; 97110; 97112; 97116; 97530; A4663; C1758; G0480; G0480-TC; J1815; J7030; J7040